=== PATIENT | female | born 1955 | race Hispanic/Latino ===

== ENCOUNTER 2016-11-07 10:50 | Emergency (ER) | payer MEDICAID, OTHER ==
[2016-11-07 10:50] VITALS: BMI 18.2
[2016-11-07 10:53] VITALS: TEMP 97.8
[2016-11-07] MEDS ORDERED: Sodium Chloride 0.9% 1,000 ML IV STA (11:38)
--- NOTE | 2016-11-07 11:52 | ED PDOC ---
Syncope/Near Syncope/Dizziness <Jose Orozco III - Last Filed: 11/07/16 15:03> History Per: Patient History/Exam Limitations: no limitations Onset/Duration Of Symptoms: Hrs Current Symptoms Are (Timing): Better Number Of Syncopal Episodes: 1 Activity At Onset Of Symptoms: Walking Associated Symptoms Preceding Syncopal Episode: Lightheadedness Seizure Or Post-ictal Symptoms: None Additional Complaint(s): CC: syncope HPI: 61 y/o woman w/ PMH of COPD (chronic bronchitis), CAD (cath 06/2016), anxiety, and chronic back pain presents to ED for syncopal episode. The patient was walking when she began to feel light-headed with mild chest discomfort and then passed out. The patient woke up on the floor with no recollection of what happened between feeling light-headed and waking up. The patient denies seizure-like symptoms such as incontinence or convulsions. The patient reports smoking marijuana about 4 hours ago for the chronic back she has had since 02/2016; however, states that she does not smoke marijuana regularly. The patient denies alcohol consumption and other illicit drugs use. The patient complains of chronic back pain with radiation down to legs. The patient currently denies headaches, dizziness, vision change, chest pain, SOB, n /v/d, abdominal pain, dysuria, and fevers. PMD: Dr. Daniella Bhakta Cardiology: Dr. Rah Nichole PMH: COPD (chronic bronchitis), CAD (cath 06/2016), anxiety, chronic back pain PSH: cath 06/2016, tonsillectomy and adenoidectomy (childhood) SOC: denies alcohol, smokes cigarettes 1 pack/week, smoked marijuana 4 hours ago ROS: 12 point assessed negative except otherwise stated in HPI - Symptoms Of CVA Current Coumadin Use?: No Recent Head Trauma: No - Risk Factors PE Risk Factors: Neg: Extremity Immobilization/Fx, Decreased Mobilty /Activity, Recent Major Surgery, Recent Hospitalization, Active Cancer, Previous DVT, Previous PE, CHF Risk Factors (Syncope): Pos: Known Coronary Artery Disease Neg: H/O Ventricular Arrhythmias, H/O Severe Valvular Disease, Brugada Syndrome <Qamar Peres - Last Filed: 11/07/16 15:05> Time Seen by Provider: 11/07/16 11:09 Chief Complaint (Nursing): Syncope Against Medical Advice - AMA Patient Left Against Medical Advice: The patient declines admission to the hospital and wishes to leave the Emergency Department. This action is against my medical advice. This decision was made with informed refusal. The patient was told that admission to the hospital is necessary. Explanation of the reasons why were discussed. The risks of leaving were explained to the patient and include, but are not limited to, worsening of known or currently unknown conditions, permanent disability and from undiagnosed or untreated conditions. The patient has the capacity to make this informed decision and understands my explanation of the current medical problem and risks of leaving. The patient voluntarily accepts these risks and signed an AMA form documenting our conversation. The patient was given the opportunity to ask questions and reconsider. The patient was encouraged to return to the Emergency Department at any time for further care. <Jose Orozco III - Last Filed: 11/07/16 15:03> Past Medical History Vital Signs: Last Vital Signs Temp 97.8 F 11/07/16 10:52 Pulse 72 11/07/16 12:00 Resp 16 11/07/16 12:00 BP 132/73 11/07/16 12:00 Pulse Ox 99 11/07/16 13:34 <Jose Oorzco III - Last Filed: 11/07/16 15:03> Vital Signs: Last Vital Signs Temp 97.8 F 11/07/16 10:52 Pulse 74 11/07/16 10:52 Resp 20 11/07/16 10:52 BP 76/50 L 11/07/16 10:52 Pulse Ox 99 11/07/16 10:52 - Medical History PMH: Anxiety (PANIC ATTACKS), Back Problems, COPD (active smoker), Fractures, HTN, Hypercholesterolemia, Osteoporosis, Pneumonia (MAR 2014 NOT HOSPITALIZED) Denies: Chronic Kidney Disease - Surgical History Surgical History: Tonsillectomy - Family History Family History: States: Unknown Family Hx - Immunization History Hx Tetanus Toxoid Vaccination: Yes Hx Influenza Vaccination: Yes Hx Pneumococcal Vaccination: Yes <Qamar Peres - Last Filed: 11/07/16 15:05> - Home Medications Home Medications: Ambulatory Orders Medication Instructions Recorded Albuterol Sulfate [Ventolin Hfa] 2 puff IH BID PRN 10/15/14 Alprazolam 1 mg PO TID 10/15/14 Ascorbic Acid [Vitamin C] 1,000 mg PO DAILY 10/15/14 Calcium/Vitamin D [Calcium + D 600 1 tab PO BID 10/15/14 mg-200 Iu] Lidocaine 5% [Lidoderm] 1 patch TOP Q12 10/15/14 Megestrol Acetate 40 mg PO DAILY 10/15/14 Metoprolol Succinate 50 mg PO BID 10/15/14 Multivit,Iron,Min 5/Folic Acid 1 tab PO DAILY 10/15/14 [Strovite Forte Caplet] Oxycodone Hydrochloride [Oxycodone] 15 mg PO Q6 PRN 10/15/14 Pravastatin Sodium [Pravastatin] 40 mg PO HS 10/15/14 Mupirocin 2% Cream [Bactroban 30 applic TOP BID #0 tube 04/06/15 Cream] Oxycodone HCl/Acetaminophen 1 tab PO BID #5 tab 04/06/15 [Endocet 325 mg-5 mg] Oxycodone HCl/Acetaminophen 1 tab PO Q4 #5 tab 04/06/15 [Percocet 325 mg-5 mg] - Allergies Allergies/Adverse Reactions: Allergies Allergy/AdvReac Type Severity Reaction Status Date / Time acetaminophen [From Percocet] Allergy RASH Verified 11/07/16 11:16 azithromycin [From Zithromax] Allergy RASH Verified 11/07/16 11:14 ciprofloxacin [From Cipro] Allergy RASH Verified 11/07/16 11:15 clindamycin Allergy RASH Verified 11/07/16 11:16 oxycodone [From Percocet] Allergy RASH Verified 11/07/16 11:16 Penicillins Allergy RASH Verified 11/07/16 11:15 Review of Systems ROS Statement: Except As Marked, All Systems Reviewed And Found Negative Constitutional: Negative for: Fever, Chills, Sweats Eyes: Negative for: Pain, Vision Change Cardiovascular: Positive for: Light Headedness. Negative for: Chest Pain, Palpitations Respiratory: Negative for: Cough, Shortness of Breath, Pleuritic Pain Gastrointestinal: Negative for: Nausea, Vomiting, Abdominal Pain, Diarrhea Musculoskeletal: Positive for: Back Pain Neurological: Positive for: Numbness (lower extremities). Negative for: Incoordination, Change in Speech, Seizures, Headache Psych: Positive for: Anxiety <JaQamar - Last Filed: 11/07/16 15:05> Physical Exam - Physical Exam Appears: Positive for: No Acute Distress Head Exam: Positive for: ATRAUMATIC, NORMOCEPHALIC Skin: Positive for: Normal Color, Warm, Dry. Negative for: Diaphoresis, Pallor Eye Exam: Positive for: EOMI, PERRL, Nystagmus (right sided) Neck: Positive for: Normal, Painless ROM, Supple Cardiovascular/Chest: Positive for: Regular Rate, Rhythm, Chest Non Tender. Negative for: Murmur Respiratory: Positive for: Normal Breath Sounds. Negative for: Accessory Muscle Use, Crackles, Rales, Rhonchi, Stridor, Wheezing, Respiratory Distress Pulses-Carotid (L): 2+ Pulses-Carotid (R): 2+ Pulses-Dorsalis Pedis (L): 2+ Pulses-Dorsalis Pedis (R): 2+ Pulses-Post. Tibialis (L): 2+ Pulses-Post. Tibialis (R): 2+ Pulses-Radial (L): 2+ Pulses-Radial (R): 2+ Gastrointestinal/Abdominal: Positive for: Normal Exam, Bowel Sounds, Soft. Negative for: Tenderness Back: Positive for: Other (paraspinal tenderness at thoracic vertebrae) Extremity: Positive for: Normal ROM. 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 Agree w findings. 61yo female who had reported syncopal episode in store after smoking marijuana this morning for first time in several years. Pt refused CT brain. Risks explained. Also refused tylenol, later said shes allergic. R arm IV NS infusion had small area infiltration, warm compress applied and arm elevated x90min w improvement. Explained need to obtain CT brain and possible hospital admission/observation given syncope and headache. Pt signed AMA after all risks/benefits/alternatives explained. <oJse Orozco III - Last Filed: 11/07/16 15:03> Medical Decision Makin61 y/o woman w/ PMH of COPD (chronic bronchitis), CAD (cath 06/2016), anxiety, and chronic back pain presents to ED for syncopal episode CBC w/ diff: WNL CMP: alk phos elevated @ 152 alcohol level: <10 CPK: WNL magnesium level: WNL troponin: neg <0.0120 UA: trace ketones, 14 RBCs urine drug screen: pos for cannabinoids and benzodiazepines cardiac monitoring EKG: normal sinus rhythm, no ST elevations/depressions, no t-wave inversions, no prolonged QT, no prolonged segments IV NS bolus toradol IM for pain 13:00 complaining of headache tylenol [address] head w/o contrast 14:[address], wished to leave AMA <Qamar Peres - Last Filed: 11/07/16 15:05> Disposition - Patient ED Disposition Is Patient to be Admitted: No Counseled Patient/Family Regarding: Studies Performed, Diagnosis, Need For Followup - Disposition Disposition: Against Medical Advice Disposition Time: 14:45 <Jose Orozco III - Last Filed: 11/07/16 15:03> - Patient ED Disposition Is Patient to be Admitted: No <Qamar Peres - Last Filed: 11/07/16 15:05> - Clinical Impression Clinical Impression: Syncope, Left against medical advice - Disposition Referrals: Daniella Bhakta MD [Family Provider] - Condition: STABLE Additional Instructions: Return to ER at earliest convenience for further testing. Return to ER for any worse or new symptoms. Instructions: Syncope (ED), Against Medical Advice (ED), IV Infiltration (ED)
[2016-11-07 12:00] VITALS: BP 132/73; PULSE 72; RESP 16
[2016-11-07 12:06] VITALS: O2SAT 99
[2016-11-07 12:10] LABS: BASO % 0.5 % (0.0-2.0); EOS # 0.1 K/uL (0.0-0.7); EOS % 1.3 % (0.0-4.0); HEMOGLOBIN 13.2 g/dL (12.0-16.0); LYMPH # 3.2 K/uL (1.0-4.3); LYMPH % 38.7 % (20.0-40.0); MEAN CELL VOLUME 91.6 fl (81.0-99.0); MEAN CORPUSCULAR HGB CONC 33.9 g/dL (33.0-37.0); MEAN PLATELET VOLUME 8.7 fl (7.2-11.7); MONO # 0.6 K/uL (0.0-0.8); MONO % 6.9 % (0.0-10.0); NEUT # 4.3 K/uL (1.8-7.0); NEUT % 52.6 % (50.0-75.0); NRBC % 0.1 % (0.0-0.0); RBC 4.24 Mil/uL (3.80-5.20); RED CELL DISTRIBUTION WIDTH 13.2 % (11.5-14.5); WHITE BLOOD COUNT 8.2 K/uL (4.8-10.8)
[2016-11-07 12:53] LABS: ALB/GLOB RATIO 1.4 (1.0-2.1); ALBUMIN 4.2 g/dL (3.5-5.0); ALT/SGPT 47 U/L (9-52); AST/SGOT 31 U/L (14-36); BLOOD UREA NITROGEN 15 mg/dl (7-17); CALCIUM 9.3 mg/dL (8.4-10.2); GFR AFRICAN-AMERICAN > 60; GFR NON-AFRICAN AMERICAN > 60
[2016-11-07 13:03] LABS: SQUAMOUS EPITHIAL 2 /hpf (0-5); URINE BACTERIA RARE (<OCC); URINE BILIRUBIN NEGATIVE (NEGATIVE); URINE BLOOD NEGATIVE (NEGATIVE); URINE CLARITY SLIGHTY-CLOUDY (Clear); URINE COLOR AMBER (YELLOW); URINE GLUCOSE (UA) NEG (Normal); URINE LEUKOCYTE ESTERASE NEG Leu/uL (Negative); URINE NITRATE NEGATIVE (NEGATIVE); URINE PROTEIN 30 mg/dL (NEGATIVE); URINE UROBILINOGEN 0.2-1.0 mg/dL (0.2-1.0)
[2016-11-07 13:09] LABS: BARBITURATES, UR NEGATIVE (NEGATIVE); BENZODIAZEPINES, UR POSITIVE (NEGATIVE); OPIATES, UR NEGATIVE (NEGATIVE); PHENCYCLIDINE, UR NEGATIVE (NEGATIVE)
--- NOTE | 2016-11-07 16:10 | CARD ---
APPROVED REPORT EKG Measurement Heart [id number] <Conclusion> Normal sinus rhythm Normal ECG
== END 2016-11-07 15:10 | disposition left against medical advice (07) ==
LOC: H.ER 10:50
DX: R55 Syncope and collapse (principal)

== ENCOUNTER 2017-09-16 16:57 | Observation (INO) | payer MEDICAID, OTHER ==
[2017-09-16 16:57] VITALS: BMI 18.2
[2017-09-16] MEDS ORDERED: Sodium Chloride 0.9% 1,000 ML IV STA (17:25)
--- NOTE | 2017-09-16 17:28 | ED PDOC ---
Syncope/Near Syncope/Dizziness Time Seen by Provider: 09/16/17 17:17 Chief Complaint (Nursing): Dizziness/Lightheaded History Per: Patient Onset/Duration Of Symptoms: Hrs (1) Current Symptoms Are (Timing): Better Associated Symptoms Preceding Syncopal Episode: Lightheadedness Seizure Or Post-ictal Symptoms: None Fall Associated With With Symptoms: Yes Additional Complaint(s): "passed out after experiencing episode of lightheadedness and palpitation. Fell and hit back of head and back. Unknown duration of LOC, no witness available. Now c/o chest discomfort. No weakness or parasthesias Past Medical History - Medical History PMH: Anxiety (PANIC ATTACKS), Back Problems, COPD (active smoker), Fractures, HTN, Hypercholesterolemia, Osteoporosis, Pneumonia (MAR 2014 NOT HOSPITALIZED) Denies: Chronic Kidney Disease - Surgical History Surgical History: Tonsillectomy - Family History Family History: States: Unknown Family Hx - Immunization History Hx Tetanus Toxoid Vaccination: Yes Hx Influenza Vaccination: Yes Hx Pneumococcal Vaccination: Yes - Home Medications Home Medications: Ambulatory Orders Medication Instructions Recorded Albuterol Sulfate [Ventolin Hfa] 2 puff IH BID PRN 10/15/14 Alprazolam 1 mg PO TID 10/15/14 Ascorbic Acid [Vitamin C] 1,000 mg PO DAILY 10/15/14 Calcium/Vitamin D [Calcium + D 600 1 tab PO BID 10/15/14 mg-200 Iu] Lidocaine 5% [Lidoderm] 1 patch TOP Q12 10/15/14 Megestrol Acetate 40 mg PO DAILY 10/15/14 Metoprolol Succinate 50 mg PO BID 10/15/14 Multivit,Iron,Min 5/Folic Acid 1 tab PO DAILY 10/15/14 [Strovite Forte Caplet] Oxycodone Hydrochloride [Oxycodone] 15 mg PO Q6 PRN 10/15/14 Pravastatin Sodium [Pravastatin] 40 mg PO HS 10/15/14 Mupirocin 2% Cream [Bactroban 30 applic TOP BID #0 tube 04/06/15 Cream] Oxycodone HCl/Acetaminophen 1 tab PO BID #5 tab 04/06/15 [Endocet 325 mg-5 mg] Oxycodone HCl/Acetaminophen 1 tab PO Q4 #5 tab 04/06/15 [Percocet 325 mg-5 mg] - Allergies Allergies/Adverse Reactions: Allergies Allergy/AdvReac Type Severity Reaction Status Date / Time acetaminophen [From Percocet] Allergy RASH Verified 11/07/16 11:16 azithromycin [From Zithromax] Allergy RASH Verified 11/07/16 11:14 ciprofloxacin [From Cipro] Allergy RASH Verified 11/07/16 11:15 clindamycin Allergy RASH Verified 11/07/16 11:16 oxycodone [From Percocet] Allergy RASH Verified 11/07/16 11:16 Penicillins Allergy RASH Verified 11/07/16 11:15 Review of Systems ROS Statement: Except As Marked, All Systems Reviewed And Found Negative Cardiovascular: Positive for: Chest Pain, Palpitations Neurological: Positive for: Headache, Dizziness Physical Exam - Reviewed Nursing Documentation Reviewed: Yes Vital Signs Reviewed: Yes - Physical Exam Appears: Positive for: Non-toxic, No Acute Distress Head Exam: Positive for: ATRAUMATIC, NORMAL INSPECTION, NORMOCEPHALIC Skin: Positive for: Normal Color, Warm, DRY Eye Exam: Positive for: EOMI, Normal appearance, PERRL ENT: Positive for: Normal ENT Inspection Neck: Positive for: Normal, Painless ROM Cardiovascular/Chest: Positive for: Regular Rate, Rhythm Respiratory: Positive for: CNT, Normal Breath Sounds Gastrointestinal/Abdominal: Positive for: Normal Exam, Soft Back: Positive for: Normal Inspection Extremity: Positive for: Normal ROM Neurologic/Psych: Positive for: Alert, Oriented. Negative for: Motor/Sensory Deficits - Laboratory Results Result Diagrams: 09/16/17 18:10 09/16/17 18:10 Disposition - Clinical Impression Clinical Impression: Syncope - Patient ED Disposition Is Patient to be Admitted: Yes - Disposition Disposition Time: 22:12 Condition: FAIR Forms: [facility] ([place]) - Pt Status Changed To: Hospital Disposition Of: Observation - POA Present On Arrival: None
[2017-09-16 18:16] LABS: BASO # 0.1 K/uL (0.0-0.2); BASO % 0.5 % (0.0-2.0); EOS % 0.4 % (0.0-4.0); LYMPH # 2.6 K/uL (1.0-4.3); LYMPH % 20.4 % (20.0-40.0); MEAN CELL VOLUME 90.9 fl (81.0-99.0); MEAN CORPUSCULAR HEMOGLOBIN 30.9 pg (27.0-31.0); MEAN PLATELET VOLUME 8.7 fl (7.2-11.7); MONO # 0.9 K/uL (0.0-0.8); MONO % 6.7 % (0.0-10.0); NEUT # 9.2 K/uL (1.8-7.0); NRBC % 0.1 % (0.0-0.0); RBC 4.87 Mil/uL (3.80-5.20); RED CELL DISTRIBUTION WIDTH 12.5 % (11.5-14.5); WHITE BLOOD COUNT 12.7 K/uL (4.8-10.8)
[2017-09-16 18:26] LABS: ALB/GLOB RATIO 1.3 (1.0-2.1); ALBUMIN 4.5 g/dL (3.5-5.0); ALT/SGPT 40 U/L (9-52); AST/SGOT 33 U/L (14-36); BLOOD UREA NITROGEN 20 mg/dl (7-17); CALCIUM 9.7 mg/dL (8.4-10.2); GFR AFRICAN-AMERICAN > 60; GFR NON-AFRICAN AMERICAN > 60
[2017-09-16 22:53] VITALS: BP 120/74; PULSE 90; RESP 16; TEMP 98; O2SAT 96
--- NOTE | 2017-09-17 08:47 | RAD ---
HISTORY: syncope COMPARISON: Chest radiograph dated 04/06/2015. TECHNIQUE: Chest PA and lateral FINDINGS: LUNGS: No active pulmonary disease. PLEURA: No significant pleural effusion identified. No pneumothorax apparent. CARDIOVASCULAR: Atherosclerotic aortic calcifications. Cardiomediastinal still within normal limits. OSSEOUS STRUCTURES: Unchanged. VISUALIZED UPPER ABDOMEN: Normal. OTHER FINDINGS: None. IMPRESSION: No active disease.
--- NOTE | 2017-09-17 08:49 | CT ---
PROCEDURE: CT HEAD WITHOUT CONTRAST. HISTORY: r/o bleed COMPARISON: CT head dated 04/30/2008. TECHNIQUE: Axial computed tomography images were obtained through the head/brain without intravenous contrast. Radiation dose: Total exam DLP = 627.2 mGy-cm. This CT exam was performed using one or more of the following dose reduction techniques: Automated exposure control, adjustment of the mA and/or kV according to patient size, and/or use of iterative reconstruction technique. FINDINGS: HEMORRHAGE: No intracranial hemorrhage. BRAIN: No mass effect or edema. Mild atrophy. Chronic microvascular ischemic changes. Basal ganglia calcifications. VENTRICLES: Unremarkable. No hydrocephalus. CALVARIUM: Unremarkable. PARANASAL SINUSES: Unremarkable as visualized. No significant inflammatory changes. MASTOID AIR CELLS: Unremarkable as visualized. No inflammatory changes. OTHER FINDINGS: None. IMPRESSION: No acute intracranial pathology.
== END 2017-09-17 01:00 | disposition left against medical advice (07) ==
LOC: H.ER 16:57 → H.ERHOLD 22:11
PROVIDERS: ADMIT Internal Medicine; ATTEND Internal Medicine
DX: R55 Syncope and collapse (principal); E78.00 Pure hypercholesterolemia, unspecified; I10 Essential (primary) hypertension; M81.0 Age-related osteoporosis without current pathological fracture; F17.200 Nicotine dependence, unspecified, uncomplicated; J44.9 Chronic obstructive pulmonary disease, unspecified; F41.0 Panic disorder [episodic paroxysmal anxiety]; Z88.6 Allergy status to analgesic agent; Z88.1 Allergy status to other antibiotic agents; Z88.3 Allergy status to other anti-infective agents
CPT/HCPCS: 70450; 71046; 80053; 84484; 85025; 99284; G0378; J7040